=== PATIENT | female | born 1990 | race Caucasian/White ===

== ENCOUNTER 2018-02-05 12:12 | Emergency (ER) | payer OTHER ==
[~2018-02-05] VITALS: Ht 157.5 cm; Wt 69.0 kg
[2018-02-05 13:05] LABS: URINE BILIRUBIN NEGATIVE (Negative); URINE BLOOD NEGATIVE (Negative); URINE CLARITY CLEAR; URINE COLOR YELLOW; URINE GLUCOSE-RANDOM NEGATIVE (Negative); URINE KETONES NEGATIVE (Negative); URINE LEUKOCYTES-REFLEX NEGATIVE (Negative); URINE NITRITE-REFLEX NEGATIVE (Negative); URINE PROTEIN NEGATIVE (Negative); URINE UROBILINOGEN 0.2 E.U./dl (0.2-1.0)
[2018-02-05 13:07] LABS: HEMATOCRIT 40.9 % (37.0-47.0); HEMOGLOBIN 13.9 gm/dL (12.0-15.0); MCH 29.1 pg (26.0-34.0); MCHC 33.9 g/dL (28.0-37.0); MCV 85.9 fL (80.0-100.0); RBC 4.76 mil/uL (4.20-5.00); WBC 8.3 thou/uL (4.0-11.0)
[2018-02-05 13:08] LABS: ABSOLUTE LYMPHOCYTES 2.4 thou/uL (0.8-5.3); ABSOLUTE MONOCYTES 0.6 thou/uL (0.0-1.2); ABSOLUTE NEUTROPHILS 5.2 thou/uL (1.6-8.1); BASOPHILS 0.4 %; EOSINOPHILS 0.4 %; LYMPHOCYTES 28.5 %; MONOCYTES 7.8 %; MPV 8.8 fl. (7.2-11.1); NUCLEATED RBCS 0 /100WBC; PLATELET COUNT* 305 thou/uL (150-400); POLYS 62.9 %; RDW-CV 13.2 % (10.5-14.5)
[2018-02-05 13:15] LABS: ANION GAP 9 mmol/L (7-16); BUN 11 mg/dL (7-18); CALCIUM 8.8 mg/dL (8.5-10.1); CHLORIDE 106 mmol/L (98-107); CO2 27 mmol/L (21-32); CREATININE 0.9 mg/dL (0.6-1.3); GLUCOSE 99 mg/dL (70-99); POTASSIUM 3.6 mmol/L (3.5-5.1); SODIUM 142 mmol/L (136-145)
[2018-02-05 13:21] LABS: ACETAMINOPHEN < 2 ug/mL (10-30); ALCOHOL < 10 mg/dL (<10); SALICYLATE 3.4 mg/dL (2.8-20.0)
[2018-02-05 13:22] LABS: ALBUMIN 4.1 g/dL (3.4-5.0); ALKALINE PHOSPHATASE 68 U/L (46-116); SGOT 12 U/L (15-37); SGPT 20 U/L (30-65); TOTAL BILIRUBIN 0.8 mg/dL (<0.1-1.0); TOTAL PROTEIN 6.8 g/dL (6.4-8.2); TROPONIN-I LEVEL <0.06 ng/mL (<0.06)
[2018-02-05 13:24] LABS: AMP/METHAMP Negative (Negative); BARBITURATES Negative (Negative); BENZODIAZEPINES Negative (Negative); COCAINE Negative (Negative); METHADONE Negative (Negative); OPIATES Negative (Negative); PCP Negative (Negative); THC POSITIVE (Negative)
[2018-02-05 13:48] VITALS: BP 122/71
--- NOTE | 2018-02-06 16:53 | EKG ---
[place] [address] ELECTROCARDIOGRAM REPORT Name: LUIS ANGELHUSSAIN NIXSEY LOUIS Room: [facility]#: [id number] Admission: 02/05/18 Attend Phys: Discharge: 02/05/18 Date of : 86 Report #: [id number] THIS REPORT FOR: //name// [facility] ED Test Date: 2018-02-05 Test Time: 12:17:18 Pat Name: LINDEN WATERS Department: Room: Gender: F Service Order Dispatcher Chief: COBY : 1990 Requested By: Mundo Carvajal Order Number: [id number] MD: Mik Greer Measurements Intervals [place] Rate: 104 P: 33 RI: 137 QRS: 49 QRSD: 80 T: -1 QT: 334 QTc: 440 Interpretive Statements Sinus tachycardia No previous ECG available for comparison Electronically Signed On 02-06-2018 16:52:51 CDT by Mik Greer [email or web address] <ELECTRONICALLY SIGNED> By: Mik Greer MD, [facility] 02/06/18 1652 1217 1217 Mik Greer MD, FACC /EPI
== END 2018-02-05 13:49 | disposition home or self-care (01) ==
LOC: M.ERS 12:12
PROVIDERS: Family Medicine
DX: R55 Syncope and collapse (principal); F17.210 Nicotine dependence, cigarettes, uncomplicated